=== PATIENT | female | born 2000 | race Caucasian/White ===

== ENCOUNTER → 2021-04-17 10:23 | Outpatient (CLI) | payer OTHER, SELFPAY ==
[2021-04-17 10:46] LABS: Add Manual Diff / Slide Review NO; Basophils Absolute Auto 0 /uL (0-100); Basophils Percent Auto 0.4 % (0-2); Eosinophils Absolute Auto 100 /uL (0-450); Eosinophils Percent Auto 1.5 % (2-4); Hematocrit 44.3 % (36-46); Hemoglobin 14.7 g/dL (12.0-16.0); Lymphocytes Absolute Auto 2200 /uL (1100-4500); Lymphocytes Percent Auto 37.2 % (25-40); Mean Corpuscular HGB Conc 33.1 % (30-36); Mean Corpuscular Hemoglobin 28.8 PG (26-34); Monocytes Absolute Auto 600 /uL (0-900); Monocytes Percent Auto 9.8 % (3-14); Neutrophils Absolute Auto 3000 /uL (1500-7000); Neutrophils Percent Auto 51.1 % (50-75); Platelet Count 230 X10^3/uL (150-400); Red Blood Cell Count 5.08 X10^6/uL (4.0-5.2); Red Cell Distribution Width 12.7 % (11.6-14.8); White Blood Cell Count 5.9 X10^3/uL (4.5-11.0)
[2021-04-17 11:15] LABS: Alanine Aminotransferase 49 IU/L (<35); Albumin 4.8 g/dL (3.5-5.0); Albumin Globulin Ratio 1.6 (1.0-2.8); Alkaline Phosphatase 71 U/L (38-126); Aspartate Aminotransferase 45 IU/L (14-36); BUN Creatinine Ratio 22.8 (6-22); Bilirubin Total 0.9 mg/dL (0.2-1.3); Blood Urea Nitrogen 13 mg/dL (7-17); Calcium 9.8 mg/dL (8.4-10.2); Carbon Dioxide 26 mmol/L (22-32); Chloride 103 mmol/L (98-107); Estimated Glomerular Filt Rate > 60.0 mL/min (>60); Glucose 88 mg/dL (70-100); HEMOLYSIS 55 (0-50); Potassium 4.4 mmol/L (3.4-5.1); Sodium 139 mmol/L (137-145); Total Protein 7.8 g/dL (6.3-8.2)
[2021-04-17 11:32] LABS: TSH w/ Reflex to FT4 1.95 uIU/mL (0.47-4.68)
[2021-04-17 12:05] LABS: Pregnancy Test Urine Negative (Negative)
== END ==
PROVIDERS: PCP Family Medicine; Referring Provider Family Medicine; Visit Provider Family Medicine
DX: F41.9 Anxiety disorder, unspecified (principal); Z30.09 Encounter for other general counseling and advice on contraception
CPT/HCPCS: 36415; 80053; 81025; 84443; 85025

== ENCOUNTER 2021-05-26 08:15 | Outpatient (RCR) | payer OTHER, SELFPAY ==
--- NOTE | 2021-05-22 17:26 | PT.OIE ---
Current Diagnoses Pain in right wrist (05/22/21) Muscle weakness (generalized) (05/22/21) Past Medical History (Last Updated 04/22/21 @ 14:06 by Isaías Rao RN) Encounter for contraceptive management History of nasal septoplasty (~2020) History of rhinoplasty (~2009) Tachycardia Past Surgical History (Last Updated 03/07/21 @ 21:09 by Cate Mustafa) Anesthesia History of nasal septoplasty (~2020) History of rhinoplasty (~2009) Visit Care Team Role Provider Type Alen Hewitt MD Attending Provider Physician Family Provider Primary Care Provider Referring Provider Specialty: [facility] Practice Address: [address] [place] [address] Email: [email or web address] Physical Therapy Initial Evaluation PT-OP-A Visit Information Start: 05/21/21 10:42 Freq: Status: Active Protocol: Document 05/22/21 08:19 LRN (Rec: 05/22/21 09:03 LRN [id number]) Out-Patient Physical Therapy Visit Information Visit Information Visit Type Initial Evaluation Visit Start Time 08:19 Visit Stop Time 09:02 Total Visit Minutes 43 Visit Number 1 Evaluation Information Evaluation Date 05/22/21 Precautions Precautions None PT-OP-B Current Condition Start: 05/21/21 10:42 Freq: Status: Active Protocol: Document 05/22/21 08:19 LRN (Rec: 05/22/21 09:03 LRN [id number]) Current Condition History of Current Condition Onset Date A little over a year ago insidious onset of pain, exacerbated a month ago. Current Complaints R dorsal wrist pain History of Current Condition R wrist pain when doing presses/push ups with crossfit exercise and recently noted pain with press ups overhead. Can't do handstands and pushups due to pain. Bought an [id number] soft wrist support and has lately been wearing a heavier support with thumb support. Has noticed a bump at the R wrist ~ 3 wks ago that is getting bigger. 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 Prior Treatments and Tests Self care of wearing a soft wrist support. Future Testing and Treatments Planned None Treatment Goals Patient/Caregiver Goals Pt goal is to be able to do overhead movements without R wrist pain during workouts, and to improve the R wrist rather than a have a temporary fix. 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 Baseline Function- Recreation/Hobbies Did cross fit 5-6 days a week. Baseline Function- Other Prior to a year ago would get a little soreness in the wrist for a day after exercise of weight bearing through the wrist. Current Functional Impairments (Reported) Functional Limitations- ADL's Limited with weight bearing through the R wrist due to pain. Opening doors makes it hurt. Denies pain with sleeping. Wears the soft brace with overhead workouts. Denies pain with gripping/ holding objects. Functional Limitations- Work/School No change with work as veterinary laboratory technician. 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 Functional Limitations- Recreation/ Cross fit with no pressing, Hobbies just a commerical exercise routine. Does nothing that puts pressure on wrist. Personal Factors Other Personal Factors That May Effect Does cross fit training, Therapy/Recovery teaches cross fit. PT-OP-C Subjective Start: 05/21/21 10:42 Freq: Status: Active Protocol: Document 05/22/21 08:19 LRN (Rec: 05/22/21 09:03 LRN [id number]) Patient Questionnaires Quick Dash- Upper Extremity Quick Dash UE Score 18 Quick Dash UE Impairment 1 to 19% Impaired (Score 1-19) Upper Extremity Functional Scale UEFS Score ....... OP-PT Pain Assessment Pain Assessment Grid Paper Pain Assessment Grid Completed Yes Location R mid wrist Pain Location Details R dorsal wrist Intensity 6 Scale Used Numeric (0 - 10) Description Dull,Sharp Frequency When weightbearing through R wrist. Pain Duration Brief sharp, then dull for up to 15 min Other Pain Aggravating Factors Weightbearing Pain Alleviating Factors Inactivity PT-OP-H Neuro Start: 05/21/21 10:42 Freq: Status: Active Protocol: Document 05/22/21 08:19 LRN (Rec: 05/22/21 09:03 LRN [id number]) Sensation Evaluation Gross Sensation Gross Sensation WNL Comments Summary Comments Occasional tingling in bilateral fingertips and including thumb. PT-OP-J Posture/Palpation/Skin Start: 05/21/21 10:42 Freq: Status: Active Protocol: Document 05/22/21 08:19 LRN (Rec: 05/22/21 16:52 LRN [id number]) Palpation Assessment Location R wrist Palpation Location R wrist dorsal surface Palpation Findings Tenderness Palpation Details Posterior displacement of Capitate and possibly Scaphoid or Lunate. PT-OP-K Range of Motion Start: 05/21/21 10:42 Freq: Status: Active Protocol: Document 05/22/21 08:19 LRN (Rec: 05/22/21 09:03 LRN [id number]) Elbow/Forearm Range of Motion Elbow/Forearm Right Active Elbow/Forearm ROM WFL Yes ROM Testing Position Sitting Left Active Elbow/Forearm ROM WFL Yes ROM Testing Position Sitting Wrist Goniometric Range of Motion Wrist Right Wrist ROM WFL No Flexion Active (degrees) 70 Extension Active (degrees) 72 Ulnar Deviation Active (degrees) 45 Radial Deviation Active (degrees) 15 Left Wrist ROM WFL Yes Flexion Active (degrees) 80 Extension Active (degrees) 80 Ulnar Deviation Active (degrees) 45 Radial Deviation Active (degrees) 20 PT-OP-L Special Tests Start: 05/21/21 10:42 Freq: Status: Active Protocol: Document 05/22/21 08:19 LRN (Rec: 05/22/21 16:50 LRN [id number]) Special Tests Wrist/Hand Special Tests Midcarpal Shiuft Test Test Results + Right with a non-painful clunk Comments Indicates possible indcarpal instability. Scaphoid Shift Test Test Results + Right with a non-painful clunk. Comments Indicates possible scapholunate interosseous ligament instability. Sitting Hands Test Test Results + Right Comments Pt not able to weight bear on R arm, indicating possible severe synovitis in the Scaphoid Lunate ligament. PT-OP-M Strength Start: 05/21/21 10:42 Freq: Status: Active Protocol: Document 05/22/21 08:19 LRN (Rec: 05/22/21 09:03 LRN [id number]) Elbow/Forearm Strength Elbow and Forearm Manual Muscle Testing Right Flexion (C6) 5 Normal Extension (C7) 5 Normal Pronation 5 Normal Supination 4+ Good+ Comments Pain at ulnar side of wrist with resisted supination. Left Comments WNL Wrist Strength Wrist Manual Muscle Testing Right Comments WNL Testing of wrist results in clunk with UD/RD. Left Comments WNL PT-OP-Q Treatments Start: 05/21/21 10:42 Freq: Status: Active Protocol: Document 05/22/21 08:19 LRN (Rec: 05/22/21 09:03 LRN [id number]) Self-Care/Home Management Treatment Education Other Education Discussed results of evaluation, goals, and plan of care (POC). Pt agreeable to goals and POC. PT-OP-T Assessment and Plan Start: 05/21/21 10:42 Freq: Status: Active Protocol: Document 05/22/21 08:19 LRN (Rec: 05/22/21 09:03 LRN [id number]) Physical Therapy Assessment Rehab Potential Rehabilitation Potential Fair Evaluation Complexity Number of Personal Factors/Comorbidities 1-2 Number of Body Systems Impaired 4 or More Clinical Presentation at Evaluation Evolving Impairments Impairments Activity Tolerance,Pain,ROM, Strength Goals One Impairment Lacks appropraite self group home program Impairment Pain with weightbearing into the R wrist. Pain with pushing open doors and lifting weights. Care Home Goal (LTG) Pt goal is to set pt up on a self care HEP to work towards improved tolerance to performing overhead movements and leaning onto the R arm without pain during workouts and when pushing open doors. 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 She has visible posterior displacement of what appears to be the Lunate with wrist flexion and palpable clunk is felt with testing of the wrist, although the pt denies pain. The pt will be seen for 1-2 visits to be placed on an exercise program to promote strength and stability at the wrist, and education in wrist care. The pt should promote conservative until further medical assessment can be made. I would recommend the pt seek a hand specialist for further evaluation and care for midcarpel instability. Physical Therapy Plan Frequency and Duration Frequency of Treatment 2x/Week Plan of Care Start Date 05/22/21 Plan of Care End Date 06/12/21 Therapeutic Interventions Therapeutic Interventions Home Exercise Program,Manual Therapy,Self-Care/Home Management,Soft Tissue Mobilization,Taping, Therapeutic Exercises Modalities Cold Pack/Ice Massage,Hot Packs Other Referrals/Consults Referrals/Consults Recommended Hand specialist for further medical evaluation. Next Visit Focus/Plan Next Note Type Treatment Note Next Visit Plan Pt education in self care to minimize inflammation and synovitis pain at the R wrist. Pt education onto a self care HEP of R UE strengthening, avoiding UE weightbearing and wrist pain. Provide recommendation of hand specialist. The pt will be directed to return to referring physician for further discussion.
--- NOTE | 2021-05-22 17:27 | PT.OPPOC ---
Physical, Occupational & Speech Therapy At [facility] Current Diagnoses Pain in right wrist (05/22/21) Muscle weakness (generalized) (05/22/21) Visit Care Team Role Provider Type Alen Hewitt MD Attending Provider Physician Family Provider Primary Care Provider Referring Provider Specialty: Family Practice Address: [address] [place] [address] Email: [email or web address] Plan Of Care PT-OP-T Assessment and Plan Start: 05/21/21 10:42 Freq: Status: Active Protocol: Document 05/22/21 08:19 LRN (Rec: 05/22/21 09:03 LRN [id number]) Physical Therapy Assessment Rehab Potential Rehabilitation Potential Fair Evaluation Complexity Number of Personal Factors/Comorbidities 1-2 Number of Body Systems Impaired 4 or More Clinical Presentation at Evaluation Evolving Impairments Impairments Activity Tolerance,Pain,ROM, Strength Goals One Impairment Lacks appropraite self prison program Impairment Pain with weightbearing into the R wrist. Pain with pushing open doors and lifting weights. Custodial Goal (LTG) Pt goal is to set pt up on a self care HEP to work towards improved tolerance to performing overhead movements and leaning onto the R arm without pain during workouts and when pushing open doors. 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 She has visible posterior displacement of what appears to be the Lunate with wrist flexion and palpable clunk is felt with testing of the wrist, although the pt denies pain. The pt will be seen for 1-2 visits to be placed on an exercise program to promote strength and stability at the wrist, and education in wrist care. The pt should promote conservative until further medical assessment can be made. I would recommend the pt seek a hand specialist for further evaluation and care for midcarpel instability. Physical Therapy Plan Frequency and Duration Frequency of Treatment 2x/Week Plan of Care Start Date 05/22/21 Plan of Care End Date 06/12/21 Therapeutic Interventions Therapeutic Interventions Home Exercise Program,Manual Therapy,Self-Care/Home Management,Soft Tissue Mobilization,Taping, Therapeutic Exercises Modalities Cold Pack/Ice Massage,Hot Packs Other Referrals/Consults Referrals/Consults Recommended Hand specialist for further medical evaluation. Next Visit Focus/Plan Next Note Type Treatment Note Next Visit Plan Pt education in self care to minimize inflammation and synovitis pain at the R wrist. Pt education onto a self care HEP of R UE strengthening, avoiding UE weightbearing and wrist pain. Provide recommendation of hand specialist. The pt will be directed to return to referring physician for further discussion. Plan of Care Dates Plan of Care Start Date 05/22/21 Plan of Care End Date 06/12/21 Electronically Signed by: Indira Bello, PT 05/22/21 2476 Please Sign and Return: I have reviewed this Plan of Care and certify that the skilled therapy services above are required to meet the patient?s needs. Physician Signature Date Printed Name and Credentials Clinical Instructor Signature Printed Name and Credentials
--- NOTE | 2021-05-26 17:48 | PT.OTN ---
Current Diagnoses Pain in right wrist (05/26/21) Muscle weakness (generalized) (05/26/21) Physical Therapy Treatment Note PT-OP-A Visit Information Start: 05/21/21 10:42 Freq: Status: Active Protocol: Document 05/26/21 08:19 LRN (Rec: 05/26/21 09:10 LRN [id number]) Out-Patient Physical Therapy Visit Information Visit Information Visit Type Treatment Note Visit Start Time 08:19 Visit Stop Time 09:07 Total Visit Minutes 56 Visit Number 2 Evaluation Information Evaluation Date 05/22/21 Precautions Precautions None PT-OP-B Current Condition Start: 05/21/21 10:42 Freq: Status: Active Protocol: Document 05/22/21 08:19 LRN (Rec: 05/22/21 09:03 LRN [id number]) Current Condition History of Current Condition Onset Date A little over a year ago insidious onset of pain, exacerbated a month ago. Current Complaints R dorsal wrist pain History of Current Condition R wrist pain when doing presses/push ups with crossfit exercise and recently noted pain with press ups overhead. Can't do handstands and pushups due to pain. Bought an [id number] soft wrist support and has lately been wearing a heavier support with thumb support. Has noticed a bump at the R wrist ~ 3 wks ago that is getting bigger. 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 Prior Treatments and Tests Self care of wearing a soft wrist support. Future Testing and Treatments Planned None Treatment Goals Patient/Caregiver Goals Pt goal is to be able to do overhead movements without R wrist pain during workouts, and to improve the R wrist rather than a have a temporary fix. 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 Baseline Function- Recreation/Hobbies Did cross fit 5-6 days a week. Baseline Function- Other Prior to a year ago would get a little soreness in the wrist for a day after exercise of weight bearing through the wrist. Current Functional Impairments (Reported) Functional Limitations- ADL's Limited with weight bearing through the R wrist due to pain. Opening doors makes it hurt. Denies pain with sleeping. Wears the soft brace with overhead workouts. Denies pain with gripping/ holding objects. Functional Limitations- Work/School No change with work as appliance service technician. 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 Functional Limitations- Recreation/ Cross fit with no pressing, Hobbies just a commerical exercise routine. Does nothing that puts pressure on wrist. Personal Factors Other Personal Factors That May Effect Does cross fit training, Therapy/Recovery teaches cross fit. PT-OP-C Subjective Start: 05/21/21 10:42 Freq: Status: Active Protocol: Document 05/26/21 08:19 LRN (Rec: 05/26/21 09:10 LRN [id number]) OP-PT Subjective Patient Comments Patient Comments States no change. PT-OP-H Neuro Start: 05/21/21 10:42 Freq: Status: Active Protocol: Document 05/22/21 08:19 LRN (Rec: 05/22/21 09:03 LRN [id number]) Sensation Evaluation Gross Sensation Gross Sensation WNL Comments Summary Comments Occasional tingling in bilateral fingertips and including thumb. PT-OP-J Posture/Palpation/Skin Start: 05/21/21 10:42 Freq: Status: Active Protocol: Document 05/22/21 08:19 LRN (Rec: 05/22/21 16:52 LRN [id number]) Palpation Assessment Location R wrist Palpation Location R wrist dorsal surface Palpation Findings Tenderness Palpation Details Posterior displacement of Capitate and possibly Scaphoid or Lunate. PT-OP-K Range of Motion Start: 05/21/21 10:42 Freq: Status: Active Protocol: Document 05/22/21 08:19 LRN (Rec: 05/22/21 09:03 LRN [id number]) Elbow/Forearm Range of Motion Elbow/Forearm Right Active Elbow/Forearm ROM WFL Yes ROM Testing Position Sitting Left Active Elbow/Forearm ROM WFL Yes ROM Testing Position Sitting Wrist Goniometric Range of Motion Wrist Right Wrist ROM WFL No Flexion Active (degrees) 70 Extension Active (degrees) 72 Ulnar Deviation Active (degrees) 45 Radial Deviation Active (degrees) 15 Left Wrist ROM WFL Yes Flexion Active (degrees) 80 Extension Active (degrees) 80 Ulnar Deviation Active (degrees) 45 Radial Deviation Active (degrees) 20 PT-OP-L Special Tests Start: 05/21/21 10:42 Freq: Status: Active Protocol: Document 05/22/21 08:19 LRN (Rec: 05/22/21 16:50 LRN [id number]) Special Tests Wrist/Hand Special Tests Midcarpal Shiuft Test Test Results + Right with a non-painful clunk Comments Indicates possible indcarpal instability. Scaphoid Shift Test Test Results + Right with a non-painful clunk. Comments Indicates possible scapholunate interosseous ligament instability. Sitting Hands Test Test Results + Right Comments Pt not able to weight bear on R arm, indicating possible severe synovitis in the Scaphoid Lunate ligament. PT-OP-M Strength Start: 05/21/21 10:42 Freq: Status: Active Protocol: Document 05/22/21 08:19 LRN (Rec: 05/22/21 09:03 LRN [id number]) Elbow/Forearm Strength Elbow and Forearm Manual Muscle Testing Right Flexion (C6) 5 Normal Extension (C7) 5 Normal Pronation 5 Normal Supination 4+ Good+ Comments Pain at ulnar side of wrist with resisted supination. Left Comments WNL Wrist Strength Wrist Manual Muscle Testing Right Comments WNL Testing of wrist results in clunk with UD/RD. Left Comments WNL PT-OP-Q Treatments Start: 05/21/21 10:42 Freq: Status: Active Protocol: Document 05/26/21 08:19 LRN (Rec: 05/26/21 09:10 LRN [id number]) Cardio Equipment Upper Body Ergometer (UBE) Duration (Minutes) 8 Height 4' fwd/bkwd Therapeutic Exercises Sitting Exercises Supination Sitting Exercise Name Supination strengthening Side right Equipment Used Lev 2 TB Reps/Minutes 4' Comments Issued Lev 2 TB Radial deviation stretch Side right Reps/Minutes 3' Wrist ext stretch Side bilateral Reps/Minutes 7' Wrist flex stretch Side bilateral Reps/Minutes 6' Self-Care/Home Management Treatment Education Patient Education Home Exercise Program Other Education Discussed pt's plan of care, discussed at length recommendations and options of care prior to further therapy , answering pt's questions regarding hand specialists and what to expect. Discussed pt contacting referring physician to discuss other healthcare options. Activities Self-Care/Home Management Activities Issued & reviewed HEP of areas of deficit: wrist stretches and sup strengthening. PT-OP-T Assessment and Plan Start: 05/21/21 10:42 Freq: Status: Active Protocol: Document 05/26/21 08:19 LRN (Rec: 05/26/21 09:10 LRN [id number]) Physical Therapy Assessment Goals One Impairment Lacks appropraite self fci program Impairment Pain with weightbearing into the R wrist. Pain with pushing open doors and lifting weights. Long-Term Goal (LTG) Pt goal is to set pt up on a self care HEP to work towards improved tolerance to performing overhead movements and leaning onto the R arm without pain during workouts and when pushing open doors. LTG Duration 2 visits - 06/12/21 (05/26/21 : MET GOAL) Assessment Summary Assessment Pt is very limited in what she is a able to tolerate in physical therapy due to pain with weightbearing through the R wrist. She is able to tolerate the ROM and strengthening exercises with the R wrist that limitations were found to exist. She feels confident in the exercises and feels a follow up visit for the exercises would be unnecessary. The pt did express desire to return after seeking further assessment by her primary care provider and ultimately hand specialist, but pt is aware another referral would be necessary to return. Physical Therapy Plan Frequency and Duration Frequency of Treatment 2x/Week Plan of Care Start Date 05/22/21 Plan of Care End Date 06/12/21 Discharge Physical Therapy Discharge Reasons Goals Met Discharge Comments Pt was educated onto a self care HEP of R UE strengthening in areas of deficit. Provided recommendation of hand specialist. The pt was directed to return to referring physician for further discussion and Dr. Echevarria, hand specialist was recommended.
--- NOTE | 2021-06-05 18:20 | PT-OP ANOTE ---
Msg left on pt's voicemail recommending that the pt discuss the need for an MRI with her physician and that she could request a copy of the PT evaluation and last treatment note to give to her physician and/or insurance company to request an MRI. Explained that it is common for insurance companies to require PT before further imaging, but that she should talk to her physician regarding this. Notifed pt that I will be gone for 2 weeks on vacation, but that if she has other concerns she could email me at [email or web address].
--- NOTE | 2021-06-25 08:48 | PT-IP ANOTE ---
Per phone, pt states she is planning on seeing a hand specialist in [place] and did not need another physician referral. The pt will seek appt with hand specialist when weather improves.
== END 2021-07-21 08:56 ==
LOC: PHYS 08:15
PROVIDERS: Family Provider Family Medicine; PCP Family Medicine; Referring Provider Family Medicine; Visit Provider Family Medicine
DX: M25.531 Pain in right wrist (principal); M62.81 Muscle weakness (generalized)
CPT/HCPCS: 97110; 97162; 97535

== ENCOUNTER → 2021-08-10 14:03 | Outpatient (CLI) | payer OTHER, SELFPAY ==
--- NOTE | 2021-08-10 14:04 | DI.RAD.S_ITS ---
PROCEDURE: XR WRIST RT MIN 3V INDICATIONS: pain TECHNIQUE: 4 views of the wrist were acquired. COMPARISON: None. FINDINGS: Bones: No fractures or dislocations. No suspicious bony lesions. Scaphoid view: Intact Soft tissues: No suspicious soft tissue calcifications. IMPRESSION: No acute osseous abnormality. Dictated by: Warner Watson M.D. on 08/10/2021 at 14:31 Approved by: Warner Watson M.D. on 08/10/2021 at 14:32
== END ==
PROVIDERS: Family Provider Family Medicine; PCP Family Medicine; Referring Provider Family Medicine; Visit Provider Family Medicine
DX: M25.531 Pain in right wrist (principal); G89.29 Other chronic pain
CPT/HCPCS: 73110

== ENCOUNTER → 2022-10-15 08:41 | Outpatient (CLI) | payer OTHER, SELFPAY ==
[2022-10-15 09:56] LABS: Add Manual Diff / Slide Review NO; Basophils Absolute Auto 0 /uL (0-100); Basophils Percent Auto 0.6 % (0-2); Eosinophils Absolute Auto 200 /uL (0-450); Eosinophils Percent Auto 2.5 % (2-4); Hematocrit 40.7 % (36-46); Hemoglobin 13.7 g/dL (12.0-16.0); Lymphocytes Absolute Auto 2100 /uL (1100-4500); Mean Corpuscular HGB Conc 33.5 % (30-36); Mean Corpuscular Hemoglobin 28.8 PG (26-34); Monocytes Absolute Auto 500 /uL (0-900); Monocytes Percent Auto 8.6 % (3-14); Neutrophils Absolute Auto 3500 /uL (1500-7000); Neutrophils Percent Auto 55.3 % (50-75); Platelet Count 221 X10^3/uL (150-400); Red Blood Cell Count 4.74 X10^6/uL (4.0-5.2); Red Cell Distribution Width 15.3 % (11.6-14.8); White Blood Cell Count 6.3 X10^3/uL (4.5-11.0)
[2022-10-15 10:11] LABS: Alanine Aminotransferase 22 IU/L (<35); Albumin Globulin Ratio 1.6 (1.0-2.8); Alkaline Phosphatase 59 U/L (38-126); Aspartate Aminotransferase 25 IU/L (14-36); BUN Creatinine Ratio 19.5 (6-22); Bilirubin Total 0.7 mg/dL (0.2-1.3); Blood Urea Nitrogen 16 mg/dL (7-17); Calcium 9.4 mg/dL (8.4-10.2); Carbon Dioxide 24 mmol/L (22-32); Chloride 104 mmol/L (98-107); Estimated Glomerular Filt Rate > 60 mL/min (>60); Globulin 3.1 g/dL (1.7-4.1); Glucose 107 mg/dL (70-100); HEMOLYSIS < 15 (0-50); Potassium 4.3 mmol/L (3.4-5.1); Sodium 139 mmol/L (137-145); Total Protein 8.1 g/dL (6.3-8.2)
[2022-10-15 15:15] LABS: TSH w/ Reflex to FT4 2.16 uIU/mL (0.47-4.68)
[2022-10-21 09:05] LABS: Percent Free Testosterone 1.87 % (0.50-2.80); Testosterone Total 15.9 ng/dL (10.0-55.0)
== END ==
PROVIDERS: Family Provider Family Medicine; PCP Family Medicine; Referring Provider Family Medicine; Visit Provider Family Medicine
DX: R00.0 Tachycardia, unspecified (principal); R74.8 Abnormal levels of other serum enzymes; N92.6 Irregular menstruation, unspecified
CPT/HCPCS: 36415; 80053; 82627; 84402; 84403; 84443; 85025

== ENCOUNTER → 2024-03-06 08:24 | Outpatient (CLI) | payer OTHER, SELFPAY ==
--- NOTE | 2024-03-06 08:25 | DI.US.S_ITS ---
PROCEDURE: US SOFT TISSUE HEAD AND NECK INDICATIONS: neoplasm of uncertain behavior of skin TECHNIQUE: Real-time scanning was performed of the neck region of interest, with image documentation. COMPARISON: None. FINDINGS: Along the right side of the neck under the area of concern, there is a 2.3 x 0.6 x 1.4 cm lymph node along with a 1.6 x 0.5 x 1.7 cm lymph node. The fatty hilum of the lymph nodes are preserved and there is no extranodal extension. IMPRESSION: Nonspecific right-sided neck lymph nodes with benign morphology. Dictated by: Antonino Abebe M.D. on 03/06/2024 at 13:36 Approved by: Antonino Abebe M.D. on 03/06/2024 at 13:38
== END ==
PROVIDERS: Family Provider Family Medicine; PCP Nurse Practitioner Family; Referring Provider Nurse Practitioner Family; Visit Provider Nurse Practitioner Family
DX: D48.5 Neoplasm of uncertain behavior of skin (principal)
CPT/HCPCS: 76536